=== PATIENT | male | born 1960 | race Caucasian/White ===

== ENCOUNTER 2018-02-26 07:30 | Inpatient (IN) | payer OTHER ==
[2018-02-26] MEDS: CEFAZOLIN 2 GM/50 ML (PMX) 50 ML IVPB (06:00)
[2018-02-26] MEDS: TRANEXAMIC ACID 1,000 MG in DEXTROSE 5% 100 ML IVPB (06:00)
[2018-02-26] MEDS ORDERED: THROMBIN 5000 UNIT VIAL (08:07)
[2018-02-26] MEDS ORDERED: CA CHLORIDE 10% 10 ML SYRINGE (08:07)
[2018-02-26] MEDS ORDERED: BUPIVACAINE 0.25%/EPI (SDV) 30 ML INJ (08:07)
[2018-02-26] MEDS: DEXAMETHASONE 1 MG TAB PO (08:41)
[2018-02-26] MEDS: GABAPENTIN 300 MG CAP PO ×2 (08:42→21:09)
[2018-02-26] MEDS: traMADol 50 MG TAB PO (08:42)
[2018-02-26] MEDS ORDERED: LABETALOL HCL 20MG INJ IV (09:30)
[2018-02-26] MEDS ORDERED: FENTAnyl 50 MCG/ML VIAL IV ×3 (09:30)
[2018-02-26] MEDS: TRANEXAMIC ACID 1,000 MG in DEXTROSE 5% 100 ML IV ×2 (09:30→11:17)
[2018-02-26] MEDS ORDERED: ONDANSETRON 4 MG INJ IV (09:30)
[2018-02-26] MEDS ORDERED: DIPHENHYDRAMINE 50 MG INJ IV ×2 (09:30→11:00)
[2018-02-26] MEDS ORDERED: ALBUTEROL 0.083% (NEB) 2.5 MG/3 ML AMP HHN (09:30)
[2018-02-26] MEDS ORDERED: MEPERIDINE 25 MG INJ IV (09:30)
[2018-02-26] MEDS ORDERED: METOCLOPRAMIDE 10 MG INJ IV (09:30)
[2018-02-26] MEDS ORDERED: HYDROmorphONE 1 MG/5 ML IV SYRINGE IV ×3 (09:30)
[2018-02-26] MEDS ORDERED: hydrALAzine 20 MG INJ IV (09:30)
[2018-02-26] MEDS ORDERED: ROPIVACAINE 0.5 % 30 ML VIAL (09:31)
[2018-02-26] MEDS ORDERED: MIDAZOLAM 1 MG/ML 2 ML INJ (09:31)
[2018-02-26] MEDS: BUPIVACAINE 0.5%/EPI (SDV) 30 ML INJ (10:04)
[2018-02-26] MEDS ORDERED: SUCCINYLCHOLINE CHLORIDE 100 MG/5 ML SYG IV (10:05)
[2018-02-26] MEDS: POLYMYXIN/BACITRACIN 1L IRRIG (10:05)
[2018-02-26] MEDS ORDERED: ROCURONIUM 50 MG INJ (10:06)
[2018-02-26] MEDS ORDERED: CEFAZOLIN 1 GM INJ (10:06)
[2018-02-26] MEDS ORDERED: PROPOFOL 20 ML (10:06)
[2018-02-26] MEDS ORDERED: LIDOCAINE 100 MG SYRINGE (10:06)
[2018-02-26] MEDS ORDERED: SUGAMMADEX SODIUM 200 MG/2 ML VIAL IV (10:06)
[2018-02-26] MEDS ORDERED: ZOLPIDEM 5 MG TAB PO (11:00)
[2018-02-26] MEDS ORDERED: morphine 2 MG INJ IV ×2 (11:00)
[2018-02-26] MEDS ORDERED: MAGNESIUM HYDROXIDE 30ML CUP PO (11:00)
[2018-02-26] MEDS ORDERED: OXYCODONE/ACETAMINOPHEN (5/325) TAB PO (11:00)
[2018-02-26] MEDS ORDERED: KETOROLAC 15 MG INJ IV (11:00)
[2018-02-26] MEDS: BUPIVACAINE 0.5% (SDV) 30 ML, morphine SULFATE (PF) 8 MG, EPINEPHrine 0.3 MG, KETOROLAC... IRR (11:02)
[2018-02-26] MEDS: CEFAZOLIN 1 GM/50 ML (PMX) 50 ML IVPB ×2 (13:31→18:03)
[2018-02-26] MEDS: ONDANSETRON 4 MG INJ IV (15:35)
[2018-02-26] MEDS: LACTATED RINGER'S 1,000 ML IV (16:50)
[2018-02-26] MEDS: DEXAMETHASONE 2 MG TAB PO ×2 (18:00)
[2018-02-26] MEDS: ATORVASTATIN 40 MG TAB PO (21:09)
[2018-02-26] MEDS: SENNA/DOCUSATE NA (8.6MG/50MG) TAB PO (21:09)
[2018-02-27] MEDS: DEXAMETHASONE 2 MG TAB PO
[2018-02-27] MEDS: ACETAMINOPHEN 500 MG TAB PO ×2 (01:32→06:00)
[2018-02-27] MEDS: CEFAZOLIN 1 GM/50 ML (PMX) 50 ML IVPB (02:27)
[2018-02-27] MEDS: LACTATED RINGER'S 1,000 ML IV (09:00)
[2018-02-27] MEDS: SENNA/DOCUSATE NA (8.6MG/50MG) TAB PO (09:07)
[2018-02-27] MEDS: ASPIRIN 81 MG TAB PO (09:07)
[2018-02-27] MEDS: LISINOPRIL 20 MG TAB PO (09:08)
[2018-02-27] MEDS: AMLODIPINE 5 MG TAB PO (09:08)
[2018-02-27] MEDS: OXYCODONE/ACETAMINOPHEN (5/325) TAB PO (11:52)
== END 2018-02-27 13:30 | disposition home or self-care (01) | DRG 483 ==
LOC: REC 07:30 → MS1 16:29
PROC: 0RRJ00Z Replacement of Right Shoulder Joint with Reverse Ball and Socket Synthetic Substitute, Open Approach (ICD-10-PCS; principal; 2018-02-26 09:30)
PROC: 0PB90ZZ Excision of Right Clavicle, Open Approach (ICD-10-PCS; 2018-02-26 09:30)
DX: M19.111 Post-traumatic osteoarthritis, right shoulder (principal); Z85.528 Personal history of other malignant neoplasm of kidney; Z90.5 Acquired absence of kidney; I10 Essential (primary) hypertension; E78.5 Hyperlipidemia, unspecified; M75.101 Unspecified rotator cuff tear or rupture of right shoulder, not specified as traumatic; E11.9 Type 2 diabetes mellitus without complications
CPT/HCPCS: 73030-RT; 86999; 97165